=== PATIENT | male | born 1975 | race Caucasian/White ===

== ENCOUNTER 2022-05-06 11:37 | Outpatient (CLI) | payer OTHER, SELFPAY ==
[2022-05-06 21:38] LABS: Chloride* 100 mmol/L (96-114); Potassium* 4.2 mmol/L (3.6-5.1); Sodium* 138 mmol/L (135-149)
[2022-05-06 21:41] LABS: Blood Urea Nitrogen* 16 mg/dL (5-24); Carbon Dioxide* 27 mmol/L (20-32); Glucose* 92 mg/dL (60-115)
[2022-05-06 21:42] LABS: Calcium* 9.6 mg/dL (8.4-10.6)
[2022-05-06 21:44] LABS: Creatinine* 0.7 mg/dL (0.5-1.5); Estimated Glomerular Filt Rate 114 ml/min
== END 2022-05-06 11:38 | disposition home or self-care (01) ==
LOC: FRMREF 11:38
PROVIDERS: PCP Physician Assistant Medical; Visit Provider Physician Assistant Medical
DX: I63.9 Cerebral infarction, unspecified (principal); E78.5 Hyperlipidemia, unspecified
CPT/HCPCS: 80048

== ENCOUNTER 2022-05-09 09:40 | Emergency (ER) | payer OTHER, SELFPAY ==
[2022-05-09 10:02] VITALS: BP 138/94; PULSE 80; RESP 18; TEMP 36.4; O2SAT 100; BMI 32.2
--- NOTE | 2022-05-09 10:37 | CRLHL7_ITS ---
For Patients: As a result of the Century Cures Act, medical imaging exams and procedure reports are released immediately into your electronic medical record. You may view this report before your referring provider. If you have questions, please contact your health care provider. CLINICAL HISTORY: Pain in right thigh post surgery 2 weeks ago. TECHNIQUE: A compression venous ultrasound exam was performed of the right lower extremity using craft-scale imaging, color Doppler and spectral Doppler analysis. FINDINGS: Sonographic imaging of the right lower extremity demonstrates normal compressibility and color Doppler venous blood flow within the common femoral vein, deep femoral vein, and the proximal greater saphenous vein. Within the thigh, the femoral vein is patent and compressible. At a lower level, the popliteal veins also show normal compressibility and color Doppler venous blood flow. Thrombus within the right posterior tibial vein and peroneal veins. Limited imaging of the contralateral groin demonstrates a normal spectral waveform and color Doppler venous blood flow within the left common femoral vein. Within the right groin there is a superficial hypoechoic rounded area with Doppler demonstrate internal flow with connection to the external iliac artery versus common femoral artery. This most likely reflects a pseudoaneurysm. IMPRESSION: 1. DVT within the right posterior tibial and peroneal veins. 2. Superficial hypoechoic rounded area within the right groin with Doppler demonstrating internal flow connecting to the external iliac artery versus Common femoral artery most likely reflecting a pseudoaneurysm. Results called to Dr. Armendariz on 05/09/22 at 12:45pm. Dictated by Jenn Owusu MD @ 05/09/2022 12:46:44 PM (Electronically Signed)
[2022-05-09 13:24] LABS: Basophils Absolute Auto 0.03 K/uL (0.00-0.30); Basophils Percent Auto 0.6 % (0.0-3.0); Eosinophils Absolute Auto 0.19 K/uL (0.00-0.50); Eosinophils Percent Auto 3.9 % (0.0-7.0); Hematocrit 40.8 % (37.0-53.0); Hemoglobin* 13.7 gm/dL (13.5-17.5); Immature Granulocytes Abs Auto 0.01 K/uL (0.00-0.30); Lymphocytes Absolute Auto 1.66 K/uL (0.90-2.90); Lymphocytes Percent Auto 33.9 % (20-44); Mean Corpuscular HGB Conc 34 gm/dL (32-36); Mean Corpuscular Hemoglobin 31 pg (26-34); Mean Corpuscular Volume 93 fL (80-100); Monocytes Percent Auto 12.7 % (0.0-11.0); Neutrophils Absolute Auto 2.39 K/uL (1.7-7.0); Neutrophils Percent Auto 48.7 % (42.0-72.0); Platelet Count* 419 K/uL (140-440); RDW Coefficient of Variation % 11.6 % (11.5-15.5); Red Blood Count 4.37 m/uL (4.30-5.90)
[2022-05-09 13:28] LABS: Slide Review Reflex No
[2022-05-09 13:29] LABS: INR 1.12 (0.91-1.10); Prothrombin Time 15.1 Seconds
[2022-05-09 13:32] LABS: Chloride* 103 mmol/L (96-114); Sodium* 141 mmol/L (135-149)
[2022-05-09 13:33] LABS: Potassium* 4.6 mmol/L (3.6-5.1)
[2022-05-09 13:35] LABS: Carbon Dioxide* 29 mmol/L (20-32); Creatinine* 0.8 mg/dL (0.5-1.5); Est. Creatinine Clearance* 112.92; Estimated Glomerular Filt Rate 109 ml/min
--- NOTE | 2022-05-09 13:35 | ED.GENADULT ---
HPI - General Adult General Time Seen by Provider: 13:36 Date Seen: 05/09/22 Chief complaint: Post Op Complication Stated complaint: Rt leg lumps after thrombectomy Time Seen by Provider: 05/09/22 13:04 Source: patient, RN notes reviewed and old records reviewed Mode of arrival: ambulatory Limitations: no limitations History of Present Illness HPI narrative: Patient is a 46-year-old male coming in with concern of right inner groin pain/thigh pain and firmness felt. 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 Patient is recovering very well per his report from his CVA. He was in the hospital initially on heparin and then placed on Coumadin, discharged on bridging Lovenox. His last Lovenox was 2 days ago, on Wednesday. His INR in clinic was 1.2 on Wednesday. He was noticing increasing right groin pain, keeping him up at night. It is more of aching type sensation. No numbness or tingling in the leg, does not note any swelling in the leg. Pain was not worsening with walking. In clinic on Wednesday he did not get any pain medicines, was told to take Tylenol. He started taking 2 Tylenol p.m. at night and has slept through the night. He decided to come in no filling with area of firmness. The obviously went through his right groin for the intervention. His dissection and stroke were in the setting of COVID-19, testing positive for COVID-19 on 04/22/2022. Patient went directly to [facility] when he started having issues and symptoms. complaint: Right groin pain and firmness status post right groin access for IR proc. Related Data Home Medications Medication Instructions Recorded Confirmed sertraline 100 mg tablet 100 mg PO DAILY 03/17/22 05/06/22 aspirin 325 mg tablet 325 mg PO QDAY 05/06/22 05/06/22 atorvastatin 80 mg tablet 80 mg PO QHS 05/06/22 05/06/22 cholecalciferol (vitamin D3) 25 25 mcg PO QDAY 05/06/22 05/06/22 mcg (1,000 unit) capsule multivitamin (Daily Multi-Vitamin 1 tab PO QAM 05/06/22 05/06/22 tablet) warfarin 5 mg tablet 5 mg PO QDAY 05/06/22 05/06/22 Allergies Allergy/AdvReac Type Severity Reaction Status Date / Time penicillin V Allergy Intermediate unknown as Verified 05/06/22 10:58 a child Review of Systems Status of ROS: Reports: 10 or more systems reviewed and unremarkable except as noted in History and below [facility] Medical History (Updated 05/09/22 @ 15:12 by Natali Claros MD) Alcoholism History of dissection of internal carotid artery Surgical History (Updated 05/06/22 @ 12:10 by Angela Moy PA-C) History of vasectomy (10/11/12) Hx of angiography Family History (Updated 03/14/22 @ 12:18 by Bethany Miranda) Father Coronary artery disease Prostate cancer Skin cancer Paternal Grandfather Stroke Diabetes Maternal Grandfather Stroke Diabetes Maternal Grandmother Stroke Diabetes Other Alcoholism Social History (Updated 03/14/22 @ 12:19 by Bethany Miranda) Narrative: Does not use illicit drugs Nonsmoker Smoking Status: Never smoker Exam Const: Vital Signs, click to edit/add: Vital Signs - 24 hr 05/09/22 10:02 05/09/22 16:40 Temperature 97.5 F L 97.8 F Pulse Rate [Right Pulse Oximeter] 80 80 Respiratory Rate 18 16 Blood Pressure [Ri ght Upper Arm] 138/94 H 123/86 Pulse Oximetry 100 98 Oxygen Delivery Me thod Room Air Room Air Documenting provider has reviewed patient's vital signs: yes Common normals: no apparent distress, average body habitus, oriented x3, no limitations, healthy appearing, alert and well nourished General appearance: cooperative, comfortable and well kempt HENMT: Common normals: normocephalic, head/scalp atraumatic and hearing grossly normal bilaterally Head and scalp: normocephalic and atraumatic Eye: Common normals: PERRL, EOMs intact bilaterally, conjunctivae normal and no scleral icterus Conjunctiva: conjunctiva(e) normal Pupil: PERRL Neck & C-Spine: Common normals: full ROM, no lymphadenopathy, supple and no JVD Resp: Common normals: normal respiratory effort, no retractions, no use of accessory muscles and clear to auscultation bilaterally Auscultation: clear to auscultation bilaterally Cardio: Common normals: no JVD, regular rate, regular rhythm, S1 normal heart sound, S2 normal heart sound, no gallops, no clicks and no murmurs Rate: regular rate Rhythm: regular rhythm Heart sounds: S1 normal and S2 normal GI: Common normals: Normal to inspection, nondistended, normoactive bowel sounds present, soft to palpation, non-tender and no hepatosplenomegaly Palpation: soft and no hepatosplenomegaly Extremity: Other: He has no pitting edema of his right lower extremity but the calf does have larger appearance than the left. There are no overlying skin changes. Good peripheral pulses, normal light touch sensation. His gait is normal. His right groin shows some resolving gravity dependent ecchymosis. In the right groin there is firmness that is enlarged but not significantly tender. It does not feel pulsatile to me. Seems to be overlying the vessels in the groin. Neuro: Common normals: oriented x3, moves all extremities, no focal motor deficits, no sensory deficits noted and gait normal Sensorium/orientation: alert Psych: Appearance: well kempt Course Course Hospital Course: Patient had ultrasound ordered of his right lower extremity on arrival, results was ready when he was roomed, was able to review with them that he had a pseudoaneurysm in the DVT. Blood work had been ordered, we are waiting his INR and then will need to talk to specialty services, whether it be IR versus vascular versus vascular surgery at [facility], once INR is known. Reevaluation(s) Reevaluation #1: Reviewed with patient and his that he has DVT below the knee. They were wondering why he had that. I reviewed that it could have been complication from hospitalization or perhaps could have even been there prior when he had COVID. It is difficult to say. Certainly his INR has not been therapeutic. We did review that immobilization as well as COVID can be thrombogenic. 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 I have spoken with the vascular surgeon at [facility]. They will plan on taking him at [facility] for attempt with Interventional Radiology versus surgery tomorrow. Patient does not have any vascular compromise at this time. This was confirmed again. Did subsequently speak with the hospitalist at [facility] to give her report as well. Time: 14:55 Consultations Consultation #1: Spoke with the vascular surgeon Dr. Sweeney from [facility]. Reviewed the pseudoaneurysm, DVT of the right lower extremity. He does not want him on anticoagulation. Continuing on his aspirin is fine. They will plan on Interventional Radiology to inject this after confirmatory ultrasound tomorrow versus surgical treatment. He is on a wait list for [facility] but will need to be up there by early tomorrow morning. I will review this with the patient. Will update a COVID. Patient is on a waiting list at [facility] but will need to be there by early childhood specialist. [facility] will be working to achieve that goal. Patient and his were wondering about transfer. At this point, I do believe he could transfer via personal vehicle but will continue to monitor. Went over signs and symptoms of changes in his leg that should prompt them to let us re-evaluate. Time: 14:32 Vital Signs Vital signs: Initial Vital Signs Temperature 97.5 F L 05/09/22 10:02 Temperature Source Temporal Artery Scan 05/09/22 10:02 Pulse Rate 80 05/09/22 10:02 Respiratory Rate 18 05/09/22 10:02 Blood Pressure 138/94 H 05/09/22 10:02 Blood Pressure Mean 108 05/09/22 10:02 Blood Pressure Position Sitting 05/09/22 10:02 Pulse Oximetry 100 05/09/22 10:02 Oxygen Delivery Method 05/09/22 10:02 Vital Signs Temperature 97.5 F L 05/09/22 10:02 Pulse Rate 80 05/09/22 10:02 Respiratory Rate 18 05/09/22 10:02 Blood Pressure 138/94 H 05/09/22 10:02 Pulse Oximetry 100 05/09/22 10:02 Oxygen Delivery Method 05/09/22 10:02 Temperature 97.8 F 05/09/22 16:40 Pulse Rate 80 05/09/22 16:40 Respiratory Rate 16 05/09/22 16:40 Blood Pressure 123/86 05/09/22 16:40 Pulse Oximetry 98 05/09/22 16:40 Oxygen Delivery Method 05/09/22 16:40 Medical Decision Making Lab Data Lab results reviewed: Yes I reviewed the patient's lab results Labs: Lab Results 05/09/22 05/09/22 05/09/22 Range/Units 13:06 13:06 13:06 WBC 4.90 (4.50-11.00) K/uL RBC 4.37 (4.30-5.90) m/uL Hgb 13.7 (13.5-17.5) gm/dL Hct 40.8 (37.0-53.0) % MCV 93 (80-100) fL MCH 31 (26-34) pg MCHC 34 (32-36) gm/dL RDW Coeff of Nikos 11.6 (11.5-15.5) % Plt Count 419 (140-440) K/uL Neut % (Auto) 48.7 (42.0-72.0) % Lymph % (Auto) 33.9 (20-44) % Trego % (Auto) 12.7 H (0.0-11.0) % Eos % (Auto) 3.9 (0.0-7.0) % Baso % (Auto) 0.6 (0.0-3.0) % Neut # (Auto) 2.39 (1.7-7.0) K/uL Lymph # (Auto) 1.66 (0.90-2.90) K/uL Trego # (Auto) 0.60 (0.00-0.90) K/UL Eos # (Auto) 0.19 (0.00-0.50) K/uL Baso # (Auto) 0.03 (0.00-0.30) K/uL Abs Immat Gran (auto) 0.01 (0.00-0.30) K/uL INR 1.12 H (0.91-1.10) Sodium 141 (135-149) mmol/L Potassium 4.6 (3.6-5.1) mmol/L Chloride 103 (96-114) mmol/L Carbon Dioxide 29 (20-32) mmol/L BUN 15 (5-24) mg/dL Creatinine 0.8 (0.5-1.5) mg/dL Estimated Creat Clear 112.92 Estimated GFR 109 ml/min Glucose 89 (60-115) mg/dL Calcium 9.8 (8.4-10.6) mg/dL SARS-CoV-2 Ag (Rapid) (Negative) 05/09/22 Range/Units 15:10 WBC (4.50-11.00) K/uL RBC (4.30-5.90) m/uL Hgb (13.5-17.5) gm/dL Hct (37.0-53.0) % MCV (80-100) fL MCH (26-34) pg MCHC (32-36) gm/dL RDW Coeff of Nikos (11.5-15.5) % Plt Count (140-440) K/uL Neut % (Auto) (42.0-72.0) % Lymph % (Auto) (20-44) % Trego % (Auto) (0.0-11.0) % Eos % (Auto) (0.0-7.0) % Baso % (Auto) (0.0-3.0) % Neut # (Auto) (1.7-7.0) K/uL Lymph # (Auto) (0.90-2.90) K/uL Trego # (Auto) (0.00-0.90) K/UL Eos # (Auto) (0.00-0.50) K/uL Baso # (Auto) (0.00-0.30) K/uL Abs Immat Gran (auto) (0.00-0.30) K/uL INR (0.91-1.10) Sodium (135-149) mmol/L Potassium (3.6-5.1) mmol/L Chloride (96-114) mmol/L Carbon Dioxide (20-32) mmol/L BUN (5-24) mg/dL Creatinine (0.5-1.5) mg/dL Estimated Creat Clear Estimated GFR ml/min Glucose (60-115) mg/dL Calcium (8.4-10.6) mg/dL SARS-CoV-2 Ag (Rapid) Negative (Negative) Imaging Data Venous US: Attestation: I have reviewed the pertinent imaging results. Radiologist's impression: Patient: ENID TROTTER Facility:?[facility] Patient ID:?[id number] Site Patient ID:?[id number]. Site :?[id number] Study:?US Extremity Right LEV RT-05/09/2022 12:22:49 PM Ordering Physician:?David Hernandez Final Report: CLINICAL HISTORY: Pain in right thigh post surgery 2 weeks ago. TECHNIQUE: A compression venous ultrasound exam was performed of the right lower extremity using craft-scale imaging, color Doppler and spectral Doppler analysis. FINDINGS: Sonographic imaging of the right lower extremity demonstrates normal compressibility and color Doppler venous blood flow within the common femoral vein, deep femoral vein, and the proximal greater saphenous vein. Within the thigh, the femoral vein is patent and compressible. At a lower level, the popliteal veins also show normal compressibility and color Doppler venous blood flow. Thrombus within the right posterior tibial vein and peroneal veins. Limited imaging of the contralateral groin demonstrates a normal spectral waveform and color Doppler venous blood flow within the left common femoral vein. Within the right groin there is a superficial hypoechoic rounded area with Doppler demonstrate internal flow with connection to the external iliac artery versus common femoral artery. This most likely reflects a pseudoaneurysm. IMPRESSION: 1. DVT within the right posterior tibial and peroneal veins. 2. Superficial hypoechoic rounded area within the right groin with Doppler demonstrating internal flow connecting to the external iliac artery versus Common femoral artery most likely reflecting a pseudoaneurysm. Results called to Dr. Armendariz on 05/09/22 at 12:45pm. Dictated by Jenn Owusu MD @ 05/09/2022 12:46:44 PM (Electronic Signature) Critical Care Time Critical Care Time Critical Care Time: No Discharge Plan Discharge Clinical Impression: DVT of lower limb, acute, Femoral artery pseudo-aneurysm, right Patient Disposition: [facility] Discharge Location: [facility] Condition: Stable
[2022-05-09 13:36] LABS: Blood Urea Nitrogen* 15 mg/dL (5-24); Calcium* 9.8 mg/dL (8.4-10.6); Glucose* 89 mg/dL (60-115)
[2022-05-09 16:30] LABS: SARS Antigen* Negative (Negative)
[2022-05-09 16:40] VITALS: BP 123/86; PULSE 80; RESP 16; TEMP 36.6; O2SAT 98
--- NOTE | 2022-05-09 17:16 | ED.NURSE ---
Given report to Anne Niño at [facility] plan to admit and transport via private car by . Room 7906 spine M/S.
== END 2022-05-09 17:05 | disposition short-term general hospital (02) ==
PROVIDERS: Emergency Provider Family Medicine; PCP Physician Assistant Medical
DX: I82.491 Acute embolism and thrombosis of other specified deep vein of right lower extremity (principal); I72.4 Aneurysm of artery of lower extremity
CPT/HCPCS: 36415; 80048; 85025; 85610; 87426; 93971; 99284; 99285

== ENCOUNTER 2022-09-30 08:01 | Outpatient (CLI) | payer SELFPAY | END 2022-09-30 08:02 | disposition home or self-care (01) | LOC: NFLDREF 10-02 04:08 | PROVIDERS: PCP Physician Assistant Medical; Referring Provider Physician Assistant Medical; Visit Provider Physician Assistant Medical | DX: E78.5 Hyperlipidemia, unspecified (principal); F41.9 Anxiety disorder, unspecified; F32.A Depression, unspecified; I63.031 Cerebral infarction due to thrombosis of right carotid artery; E78.2 Mixed hyperlipidemia; Z79.01 Long term (current) use of anticoagulants | CPT/HCPCS: 80061; 84450; 84460 ==

== ENCOUNTER 2023-02-16 07:51 | Outpatient (CLI) | payer BC, SELFPAY | END 2023-02-16 07:52 | disposition home or self-care (01) | LOC: NFLDREF 02-17 14:21 | PROVIDERS: PCP Physician Assistant Medical; Referring Provider Physician Assistant Medical; Visit Provider Physician Assistant Medical | DX: E78.2 Mixed hyperlipidemia (principal); I63.031 Cerebral infarction due to thrombosis of right carotid artery | CPT/HCPCS: 80061; 84450; 84460 ==

== ENCOUNTER 2023-11-04 08:31 | Outpatient (CLI) | payer BC, SELFPAY | END 2023-11-04 08:32 | disposition home or self-care (01) | LOC: NFLDREF 11-05 06:11 | PROVIDERS: PCP Physician Assistant Medical; Referring Provider Physician Assistant Medical; Visit Provider Physician Assistant Medical | DX: F10.21 Alcohol dependence, in remission (principal); Z86.73 Personal history of transient ischemic attack (TIA), and cerebral infarction without residual deficits; K76.0 Fatty (change of) liver, not elsewhere classified; E78.2 Mixed hyperlipidemia; Z13.29 Encounter for screening for other suspected endocrine disorder | CPT/HCPCS: 80053; 80061; 84443 ==

== ENCOUNTER 2023-12-24 07:19 | Outpatient (CLI) | payer BC, SELFPAY ==
--- NOTE | 2023-12-24 08:27 | W.ANESCHARGE ---
Anesthesia Charges Start Date/Time Anesthesia Start Date: 12/24/23 Anesthesia Start Time: 07:56 Stop Date/Time Anesthesia Stop Date: 12/24/23 Anesthesia Stop Time: 07:24
--- NOTE | 2023-12-24 09:09 | W.ANESCHARGE ---
Anesthesia Charges Start Date/Time Anesthesia Start Date: 12/24/23 Anesthesia Start Time: 07:56 Stop Date/Time Anesthesia Stop Date: 12/24/23 Anesthesia Stop Time: 07:24
== END 2023-12-24 07:20 | disposition home or self-care (01) ==
LOC: OP CLINIC 07:20
PROVIDERS: PCP Physician Assistant Medical; Visit Provider Internal Medicine
DX: Z12.11 Encounter for screening for malignant neoplasm of colon (principal)
CPT/HCPCS: 00812; 45378; J2704

== ENCOUNTER 2024-02-03 07:32 | Outpatient (CLI) | payer BC, SELFPAY | END 2024-02-03 07:33 | disposition home or self-care (01) | PROVIDERS: PCP Physician Assistant Medical; Referring Provider Physician Assistant Medical; Visit Provider Physician Assistant Medical | DX: E78.2 Mixed hyperlipidemia (principal) | CPT/HCPCS: 80061; 84450; 84460 ==